=== PATIENT | male | born 1945 | race Caucasian/White ===

== ENCOUNTER → 2019-08-11 11:37 | Outpatient (CLI) | payer OTHER, SELFPAY ==
--- NOTE | 2019-08-11 11:46 | DI.RAD.S_ITS ---
PROCEDURE: XR FOOT LT MIN 3V INDICATIONS: LEFT FOOT INJURY TECHNIQUE: Pre-views of the foot were acquired. COMPARISON: None. FINDINGS: Bones: No fractures or dislocations. No suspicious bony lesions. Mild bunion. Severe first metatarsophalangeal joint degeneration. Soft tissues: No tibiotalar joint effusion. Achilles tendon appears normal. IMPRESSION: 1. No fracture or dislocation. 2. Mild bunion and severe first metatarsophalangeal joint degeneration. Dictated by: Pavan Chakraborty M.D. on 08/11/2019 at 17:47 Approved by: Pavan Chakraborty M.D. on 08/11/2019 at 18:09
== END ==
PROVIDERS: Visit Provider Student in an Organized Health Care Education/Training Program
DX: M25.572 Pain in left ankle and joints of left foot (principal); S99.922A Unspecified injury of left foot, initial encounter; M21.612 Bunion of left foot; M19.072 Primary osteoarthritis, left ankle and foot; X58.XXXA Exposure to other specified factors, initial encounter
CPT/HCPCS: 73630

== ENCOUNTER → 2021-01-19 12:10 | Outpatient (CLI) | payer OTHER, SELFPAY ==
--- NOTE | 2021-01-19 12:13 | DI.RAD.S_ITS ---
PROCEDURE: XR CHEST 2V INDICATIONS: Chest pain TECHNIQUE: 2 views of the chest were acquired. COMPARISON: None. FINDINGS: Surgical changes and devices: None. Lungs and pleura: Lungs are clear. No pleural effusions or pneumothorax. Mediastinum: Mediastinal contours are normal. Heart size is normal. Bones and chest wall: No suspicious bony abnormalities. Soft tissues appear unremarkable. IMPRESSION: No acute cardiopulmonary process demonstrated radiographically. Dictated by: Bautista Borges M.D. on 01/19/2021 at 14:29 Approved by: Bautista Borges M.D. on 01/19/2021 at 14:50
== END ==
PROVIDERS: PCP Student in an Organized Health Care Education/Training Program; Referring Provider Student in an Organized Health Care Education/Training Program; Visit Provider Student in an Organized Health Care Education/Training Program
DX: R07.9 Chest pain, unspecified
CPT/HCPCS: 71046

== ENCOUNTER → 2021-02-09 07:59 | Outpatient (CLI) | payer OTHER, SELFPAY ==
--- NOTE | 2021-02-09 | DI.ECHO.S_ITS ---
[facility]+ [facility] +---------+ : : [address] : : : : [id number] : : : : Phone: [phone] Echocardiogram Report + + :Name: MESERET BULL Study Date: 02/09/2021 Height: 69 in : :[facility] ReadingLocation: Weight: 200 lb : : Gender: Male BSA: 2.1 m2 : :: 1945 Age: 75 yrs BP: 140/82 mmHg: :Reason For Study: CHEST PAIN : :Ordering Physician: CANDIS, : :BENNIE Performed By: Danan Young : :Referring: BENNIE CHIRINOS : + + Interpretation Summary The ejection fraction is estimated to be 60-65%. Left ventricular global longitudinal strain average is -19.7%. There is mild mitral regurgitation. There is mild aortic regurgitation. There is mild tricuspid regurgitation. The right ventricular systolic pressure is estimated to be at least 30 mmHg based on an estimated right atrial pressure of 3 mm Hg. Procedure: A two-dimensional transthoracic echocardiogram with color flow and Doppler was performed. The study quality was technically adequate. There is no prior echocardiogram noted for this patient. The patient was in sinus bradycardia with heart rates between 57-64 bpm during the exam. Left Ventricle: The left ventricle is normal in size and wall thickness. The estimated left ventricular end diastolic volume is 96 ml. The ejection fraction is estimated to be 60-65%. Left ventricular global longitudinal strain average is -19.7%. There are no obvious focal wall motion abnormalities noted but poor endocardial definition reduces the sensitivity for the detection of such. Diastolic parameters suggest probable normal left ventricular diastolic function and normal filling pressures. Right Ventricle: The right ventricle is normal in size and function. Atria: Both atria are normal in size. There is no Doppler evidence for an interatrial shunt. Mitral Valve: The mitral valve is normal in structure and function. There is mild mitral regurgitation. Aortic Valve: The aortic valve is trileaflet. The aortic valve opens well. There is no aortic valve stenosis. There is mild aortic regurgitation. Tricuspid Valve: The tricuspid valve is normal in structure and function. There is mild tricuspid regurgitation. The right ventricular systolic pressure is estimated to be at least 30 mmHg based on an estimated right atrial pressure of 3 mm Hg. Pulmonic Valve: The pulmonic valve leaflets are thin and pliable; valve motion is normal. There is mild pulmonic regurgitation. Great Vessels: The aortic root is normal size. The ascending aorta is mildly enlarged. The IVC is of normal diameter and collapses greater than 50% with a sniff. This suggests a low right atrial pressure of 3 mm Hg. Pericardium/ Pleura There is no pericardial effusion. There is no pleural effusion. MMode/2D Measurements & Calculations LVIDd: 3.8 cm LVOT diam: 2.1 cm LVIDs: 2.5 cm Ao root diam: 3.5 cm FS: 33.7 % asc Aorta Diam: 3.8 cm IVSd: 0.91 cm Ao Arch Diam (Prox Trans): 2.8 cm LVPWd: 0.94 cm LV shafer. diameter/BSA (cm/m^2): 1.8 LV sys. diameter/BSA (cm/m^2): 1.2 LA A2 area: 21.4 cm2 RA long axis: 5.4 cm LA A4 area: 14.8 cm2 RA area: 17.4 cm2 LA length (vol): 4.9 cm RA vol: 47.9 ml LA vol: 54.4 ml RA : 23.2 ml/m2 LA vol index: 26.3 ml/m2 IVC diam: 1.5 cm RVD1 (basal): 3.5 cm RVD2 (mid): 3.1 cm TAPSE: 2.1 cm Doppler Measurements & Calculations Ao V2 max: 138.9 cm/sec LVOT Max Manuel: 122.7 cm/sec Ao V2 mean: 91.5 cm/sec LV V1 max P.0 mmHg Ao max P.7 mmHg LV V1 VTI: 24.0 cm Ao mean P.9 mmHg EDUARDA(I,D): 3.3 cm2 Ao V2 VTI: 25.8 cm EDUARDA(V,D): 3.2 cm2 sev ratio: 0.93 EDUARDA indexed to BSA (cm^2/m^2): 1.6 AI P1/2t: 698.2 msec AI dec slope: 164.6 cm/sec2 MV E max manuel: 36.7 cm/sec TR max manuel: 260.9 cm/sec MV A max manuel: 72.7 cm/sec TR max P.2 mmHg MV E/A: 0.51 PA V2 max: 99.3 cm/sec Med Peak E' Manuel: 5.5 cm/sec PA V2 mean: 69.4 cm/sec E/E' med: 6.6 PA mean P.2 mmHg Lat Peak E' Manuel: 9.3 cm/sec PA pr(Accel): 31.0 mmHg E/E' lat: 4.0 E/e' average: 5.3 MV dec time: 0.45 sec SV(LVOT): 85.9 ml Reading Physician:04:03 PM
== END ==
PROVIDERS: PCP Student in an Organized Health Care Education/Training Program; Referring Provider Student in an Organized Health Care Education/Training Program; Visit Provider Student in an Organized Health Care Education/Training Program
DX: I08.3 Combined rheumatic disorders of mitral, aortic and tricuspid valves (principal); I77.89 Other specified disorders of arteries and arterioles; R07.9 Chest pain, unspecified
CPT/HCPCS: 93306

== ENCOUNTER → 2021-02-25 10:01 | Outpatient (CLI) | payer OTHER, SELFPAY ==
[2021-02-25 12:02] LABS: COVID19 -Nasal RAPID Negative (Negative)
== END ==
PROVIDERS: PCP Student in an Organized Health Care Education/Training Program; Visit Provider Physician Assistant
DX: Z01.812 Encounter for preprocedural laboratory examination (principal); Z20.822 Contact with and (suspected) exposure to COVID-19
CPT/HCPCS: 87635; C9803

== ENCOUNTER → 2021-02-27 10:04 | Outpatient (CLI) | payer OTHER, SELFPAY ==
--- NOTE | 2021-02-28 18:15 | DI.NM.S_ITS ---
DATE OF SERVICE: PROCEDURE: Exercise perfusion study. DATE OF STUDY: 02/28/2021. INDICATIONS: Chest pain with underlying hypertension and hyperlipidemia. RADIOPHARMACEUTICAL: 26.1 millicurie technetium-99m Myoview IV was injected at stress and 25.9 millicurie technetium-99m Myoview IV was injected at rest. CARDIAC STRESS: The patient underwent exercise perfusion study under the supervision of an attending staff. The patient walked on Darci protocol for 6 minutes and 9 seconds, achieved 97 percent of target heart rate. Baseline blood pressure 120/80. Peak blood pressure 166/96 mmHg. The patient achieved 7 METs of workload and functional aerobic impairment -6%. No chest pain or anginal symptoms. Baseline rhythm was sinus with first-degree AV block. During stress, there was some nonspecific ST changes. No convincing ischemic changes. Occasional PVCs at rest. No significant sustained arrhythmias seen during stress or recovery. RAW DATA: There is increased subdiaphragmatic activity. Patient's weight is 202 pounds. GATED STUDY: Resting LV ejection fraction 74% and stress LV ejection fraction 75 percent without any obvious wall motion abnormalities. Resting end-diastolic volume 139 mL. Lung/heart ratio 0.38 which is within normal limits. Visually, I do not see any transient ischemic dilatation. PERFUSION SCAN: Stress supine, resting supine and stress prone images were compared to each other. Stress supine and resting supine images revealed moderate-size, mild to moderately decreased perfusion of inferior wall and inferior apex, as well as mildly decreased perfusion of basal anterior wall which got significantly improved during prone images suggestive of tissue attenuation artifact. No convincing ischemia or infarction during the stress prone images. CONCLUSION: I will call this study likely a normal myocardial perfusion study with evidence of predominantly diaphragmatic tissue attenuation artifact which got significantly improved during stress prone images. No convincing ischemia or infarction pattern during stress prone images. Fair exercise tolerance. Mildly hypertensive blood pressure response. Preserved left ventricular function without any obvious wall motion abnormalities. No obvious ischemic EKG changes or significant arrhythmias. Overall, this is a low-risk myocardial perfusion scan. Correlate clinically. Jesus Daigle - ALEXANDER/estella/ac doc#: [id number]/job#: [id number] dd: 02/28/2021 17:19:00 dt: 02/28/2021 18:06:00 DICTATING MD/COPIES TO: Deonte Power MD COPIES MNE: PRECIOUS;
== END ==
PROVIDERS: PCP Student in an Organized Health Care Education/Training Program; Referring Provider Student in an Organized Health Care Education/Training Program; Visit Provider Student in an Organized Health Care Education/Training Program
DX: R07.9 Chest pain, unspecified (principal); I10 Essential (primary) hypertension; E78.5 Hyperlipidemia, unspecified
CPT/HCPCS: 78452; 93017; A9502

== ENCOUNTER → 2021-11-23 11:26 | Outpatient (CLI) | payer OTHER, SELFPAY ==
--- NOTE | 2021-11-23 11:31 | DI.RAD.S_ITS ---
PROCEDURE: XR LUMBAR SPINE 2-3V INDICATIONS: back pain/sciatica TECHNIQUE: 3 views of the lumbar spine were acquired. COMPARISON: None. FINDINGS: Bones: 5 [id number] vertebrae are present. There is normal bony alignment. No vertebral body compression fractures. No suspicious bony lesions. Multilevel disc space narrowing and degenerative endplate changes are seen. Facet hypertrophy is seen throughout the lumbar spine. Soft tissues: Overlying bowel gas pattern is normal. No suspicious soft tissue calcifications. Mild aortic atherosclerotic calcifications. IMPRESSION: Moderate multilevel spondylosis. No acute osseous abnormality. If the symptoms persist, consider cross sectional imaging such as MRI or CT for further assessment. Dictated by: Keo Marcos M.D. on 11/23/2021 at 15:08 Approved by: Keo Marcos M.D. on 11/23/2021 at 15:09
== END ==
PROVIDERS: PCP Student in an Organized Health Care Education/Training Program; Referring Provider Student in an Organized Health Care Education/Training Program; Visit Provider Student in an Organized Health Care Education/Training Program
DX: M54.30 Sciatica, unspecified side; M47.816 Spondylosis without myelopathy or radiculopathy, lumbar region
CPT/HCPCS: 72100

== ENCOUNTER → 2021-12-20 15:38 | Outpatient (CLI) | payer OTHER, SELFPAY ==
--- NOTE | 2021-12-20 | DI.MRI.S_ITS ---
PROCEDURE: MR LUMBAR SPINE WO CON INDICATIONS: Radiculopathy, lumbar region TECHNIQUE: Noncontrast sagittal T1 spin echo and T2 fast echo, sagittal STIR, and T2 fast spin echo through the lumbar spine. In cases with scoliosis, additional coronal T2 fast spin echo may be performed. COMPARISON: [facility], CR, XR LUMBAR SPINE 2-3V, 11/23/2021, 11:31. FINDINGS: Image quality: Excellent. Alignment and Curvature: There is trace, approximately 1-2 millimeters of L2-L3, L3-L4 and L4-L5 retrolisthesis. Bone Marrow: Mild Modic type 2 reactive endplate changes noted adjacent to the L1-L2, L2-L3, L3-L4, L4-L5 and L5-S1 discs. No acute vertebral body compression fractures. Spinal Cord: Conus medullaris terminates at the L1 level. Visualized cord demonstrates normal signal and size. Paraspinous Soft Tissues: No paravertebral masses. T12-L1: Loss of disc signal. Minimal, diffuse disc bulge. Mild narrowing of the central canal. No neural foraminal narrowing. No neural compression. L1-L2: Loss of disc signal. Mild, diffuse disc bulge. Mild narrowing of the central canal. No neural foraminal narrowing. No neural compression. L2-L3: Loss of disc signal and height. Mild to moderate diffuse disc bulge. Mild bilateral facet hypertrophy. Mild to moderate narrowing of the central canal. Mild to moderate bilateral neural foraminal narrowing. No neural compression. L3-L4: Loss of disc signal and height. Mild to moderate diffuse disc bulge. Zmhb-[id number] bilateral facet hypertrophy. Mild to moderate narrowing of the central canal. Mild to moderate bilateral neural foraminal narrowing. No neural compression. L4-L5: Loss of disc signal and mild loss of disc height. Moderate, diffuse disc bulge. Vkvv-ih-ihxgzwqx bilateral facet hypertrophy. Mild ligamentum flavum hypertrophy. Severe narrowing of the central canal with mild compression of the traversing nerve roots of the cauda equina. Moderate bilateral neural foraminal narrowing. L5-S1: Loss of disc signal and height. Mild, diffuse disc bulge. Small left central disc extrusion. Extruded disc material extends superiorly along the posterior margin of the L5 vertebral body to a pedicular level. Extruded disc material abuts and slightly compresses the left L5 nerve root. Mild bilateral facet hypertrophy. Moderate narrowing of the central canal. Moderate bilateral neural foraminal narrowing. IMPRESSION: 1. Multilevel degenerative disc disease. 2. Multilevel facet arthropathy. 3. Severe L4-L5 central canal narrowing with mild compression of the nerve roots of the cauda equina. 4. No severe neural foraminal narrowing. 5. Small left central L5-S1 disc extrusion which abuts and slightly compresses the left L5 nerve root. Dictated by: Tania Michel MD, PhD on 12/20/2021 at 16:55 Approved by: Tania Michel MD, PhD on 12/20/2021 at 17:12
== END ==
PROVIDERS: PCP Student in an Organized Health Care Education/Training Program; Referring Provider Student in an Organized Health Care Education/Training Program; Visit Provider Student in an Organized Health Care Education/Training Program
DX: M51.16 Intervertebral disc disorders with radiculopathy, lumbar region (principal); M51.17 Intervertebral disc disorders with radiculopathy, lumbosacral region; M47.816 Spondylosis without myelopathy or radiculopathy, lumbar region; M47.817 Spondylosis without myelopathy or radiculopathy, lumbosacral region; M48.061 Spinal stenosis, lumbar region without neurogenic claudication; M48.07 Spinal stenosis, lumbosacral region
CPT/HCPCS: 72148

== ENCOUNTER 2022-02-19 14:30 | Outpatient (RCR) | payer OTHER, SELFPAY ==
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
--- NOTE | 2022-01-05 19:00 | PT.OPPOC ---
Physical, Occupational & Speech Therapy At [facility] Current Diagnoses Radiculopathy, lumbosacral region (01/05/22) Low back pain, unspecified (01/05/22) Visit Care Team Role Provider Type Brianne Lazar MD Family Provider Physician Primary Care Provider Specialty: Family Practice Address: [address] [place] [address], [facility] [place], [address] Email: [email or web address] Graham Abarca DO Attending Provider Non-Staff Referring Provider Specialty: Neurosurgery Address: [address] [place] [address], [id number] Email: Plan Of Care PT-OP-T Assessment and Plan Start: 01/03/22 20:58 Freq: Status: Active Protocol: Document 01/05/22 09:51 LRN (Rec: 01/05/22 12:41 LRN [id number]) Physical Therapy Assessment Rehab Potential Rehabilitation Potential Good Evaluation Complexity Number of Personal Factors/Comorbidities 1-2 Number of Body Systems Impaired 4 or More Clinical Presentation at Evaluation Evolving Impairments Impairments Activity Tolerance,Functional Mobility,Pain,Posture,ROM,Soft Tissue Mobility Goals Three Impairment Decreased hip mobility Impairment Decreased hip mobility increases R LBP to 1-4/10. PSLR is 70 deg's bilaterally, hip IR is 30 deg's bilaterally . Short Term Goal (STG) Pt will be independent on a HEP of bilateral Hamstring/LE neural and hip IR stretches. STG Duration 02/19/22 Skilled Nursing Goal (LTG) Improve hip mobility with concommittent decrease in use of medications. LTG Duration 03/20/22 Two Impairment R LB, buttock, posterior thigh pain rated 1-7/10 Impairment R Low back pain rated 1-4/10; R buttock pain rated 4-7/10; R LE pain rated 3/10. Short Term Goal (STG) Decrease R buttock pain, and pain down R lateral thigh; R buttock pain to 2-4/10; R LE pain to 0/10. STG Duration 02/04/22 Burrer Hand Goal (LTG) Decrease R LBP to no greater than 2/10 and R buttock pain to occasional onset no greater than 2/10. LTG Duration 03/20/22 One Impairment Lacks appropriate self care HEP Short Term Goal (STG) Pt will be educated in proper body mechanics for daily activities and transfers. STG Duration 01/19/22 Skilled Nursing Goal (LTG) Pt will be independent in a self care HEP for the R back, Bilateral hips, and RLE. LTG Duration 03/20/22 Assessment Summary Assessment Pt presents with variable signs and symptoms of neural R sided disc involvement of the lumbar spine (L2-L5) with pain in the R low back, buttock and LE. PSLR is negative but manual lumbar traction reduces pain. He is limited with trunk R SB and extension due to pain. Pt has very low tolerance to lumbar extension mobility due to onset of R LBP/LE pain. His hip mobility is primarily limited with bilateral hip IR (piriformis tightness) and hamstring/LE neural tension. The pt will benefit from skilled physical therapy for focus on decreasing soft tissue muscle guarding and pain, improving lumbar/hip mobility and for hip/core/ pelvic stabilization. Pt education will be focused on proper transfers, self care and home exercise. Physical Therapy Plan Frequency and Duration Frequency of Treatment 2x/Week Plan of Care Start Date 01/05/22 Plan of Care End Date 03/20/22 Therapeutic Interventions Therapeutic Interventions Aquatic Therapy,Home Exercise Program,Joint Mobilizations, Manual Therapy,Neuromuscular Re-education,Patient/Caregiver Education,Self-Care/Home Management,Soft Tissue Mobilization,Therapeutic Activities,Therapeutic Exercises Modalities Cold Pack/Ice Massage,Electric Stimulation,Hot Packs, Traction- Mechanical, Ultrasound Next Visit Focus/Plan Next Note Type Treatment Note Next Visit Plan Check Vertical loading and lump test, and Dheeraj test. Check Trunk Rot & SB strength. Recheck self lumbar traction positioning at home. Start gentle Savanah trunk ext and manual lumbar traction , ending MH/IFES [L2-L5]. Education in proper body mechanics and ADLs. Start trunk flex ex's if pt doesn't tolerate Savanah ext ex's well. Hip stretches for LE neural and Piriformis/QL stretching. Plan of Care Dates Plan of Care Start Date 01/05/22 Plan of Care End Date 03/20/22 Electronically Signed by: Angelica Reed, PT 01/05/22 1900 If you are in agreement with this Plan of Care, please return a signed and dated copy. I have reviewed this Plan of Care and certify that the skilled therapy services above are required to meet the patient?s needs. Physician Signature Date Printed Name and Credentials Clinical Instructor Signature Printed Name and Credentials
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
== END 2022-02-23 10:46 ==
LOC: PHYS 14:30
PROVIDERS: Family Provider Student in an Organized Health Care Education/Training Program; PCP Student in an Organized Health Care Education/Training Program; Referring Provider Neurological Surgery; Visit Provider Neurological Surgery
DX: M54.50 Low back pain, unspecified (principal); M54.17 Radiculopathy, lumbosacral region
CPT/HCPCS: 97012; 97032; 97110; 97140; 97162; 97535

== ENCOUNTER → 2022-09-28 13:09 | Outpatient (CLI) | payer OTHER, SELFPAY ==
[2022-10-01 12:08] LABS: Fecal Immunochemical Test Negative (Negative)
== END ==
PROVIDERS: Family Provider Student in an Organized Health Care Education/Training Program; PCP Family Medicine; Referring Provider Family Medicine; Visit Provider Family Medicine
DX: Z12.11 Encounter for screening for malignant neoplasm of colon (principal)
CPT/HCPCS: 82274